=== PATIENT | female | born 2005 | race Caucasian/White ===

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

== ENCOUNTER 2025-02-28 06:18 | Emergency (ER) | payer BC, MEDICAID ==
[2025-02-28 06:39] LABS: BASOPHILS ABSOLUTE AUTO 0.07 K/uL (0.00-0.30); BASOPHILS PERCENT AUTO 0.7 % (0.0-1.0); EOSINOPHILS ABSOLUTE AUTO 0.06 K/uL (0.00-0.70); EOSINOPHILS PERCENT AUTO 0.6 % (0.0-5.0); IMMATURE GRAN ABSOLUTE AUTO 0.03 K/uL (0.00-0.05); IMMATURE GRAN PERCENT AUTO 0.3 % (0.0-0.4); LYMPHOCYTES ABSOLUTE AUTO 2.75 K/uL (2.00-8.80); LYMPHOCYTES PERCENT AUTO 29.4 % (50.0-65.0); MEAN PLATELET VOLUME 11.0 fL (9.4-12.3); MONOCYTES ABSOLUTE AUTO 0.58 K/uL (0.10-1.40); MONOCYTES PERCENT AUTO 6.2 % (2.0-10.0); NEUTROPHILS ABSOLUTE AUTO 5.86 K/uL (1.50-8.50); NEUTROPHILS PERCENT AUTO 62.8 % (35.0-45.0); NRBC ABSOLUTE 0.00 K/uL (0.00-0.03); NRBC PERCENT 0.0 /100WBC (0.0-0.2); PLATELET COUNT,PLT 385 K/uL (150-400); RED BLOOD CELL COUNT 4.45 M/uL (4.10-5.30); WHITE BLOOD CELL COUNT,WBC 9.35 K/uL (4.5-13.5)
[2025-02-28 07:03] LABS: BLOOD UREA NITROGEN,BUN 10 mg/dL (7.0-18.0); CARBON DIOXIDE,CO2 23.9 mmol/L (21.0-32.0); CHLORIDE,CL 103 mmol/L (98-107); CREATININE 0.8 mg/dL (0.6-1.0); EST CRCL DRUG DOSING (CG) 118.21 mL/min; ESTIMATED GFR 109 mL/min (>60); GLUCOSE RANDOM 111 mg/dL (74-106); POTASSIUM,K 3.4 mmol/L (3.5-5.1); SODIUM,NA 140 mmol/L (136-145)
[2025-02-28] MEDS: Potassium Chloride 20 MEQ Tab.ER PO ONE (07:21)
[2025-02-28 07:26] VITALS: BP 126/80; PULSE 88
== END 2025-02-28 07:25 | disposition home or self-care (01) ==
LOC: MW.ED 06:18
DX: R07.9 Chest pain, unspecified (principal); E87.6 Hypokalemia; Z88.0 Allergy status to penicillin; Z79.899 Other long term (current) drug therapy; Z91.040 Latex allergy status
CPT/HCPCS: 36415; 71045; 80048; 84484; 84703; 85025; 93005; 99285; A9270; 93010; 99283

== ENCOUNTER 2025-03-20 21:08 | Emergency (ER) | payer OTHER, BC ==
[2025-03-20] MEDS ORDERED: Sodium Chloride 0.9% 2.5 ML Syringe FLUSH PRN (21:10)
[2025-03-20] MEDS ORDERED: Sodium Chloride 0.9% 10 ML Syringe FLUSH PRN (21:10)
[2025-03-20] MEDS: Diphtheria,Pertussis(Acell),Tetanus Vaccine 0.5 ML Syringe IM ONE (21:22)
[2025-03-20] MEDS: Ondansetron 4 MG/2 ML SDV IVPUSH ONE ×2 (21:22→22:36)
[2025-03-20 21:35] LABS: BASOPHILS ABSOLUTE AUTO 0.11 K/uL (0.00-0.30); BASOPHILS PERCENT AUTO 0.7 % (0.0-1.0); EOSINOPHILS ABSOLUTE AUTO 0.15 K/uL (0.00-0.70); EOSINOPHILS PERCENT AUTO 1.0 % (0.0-5.0); IMMATURE GRAN ABSOLUTE AUTO 0.12 K/uL (0.00-0.05); IMMATURE GRAN PERCENT AUTO 0.8 % (0.0-0.4); LYMPHOCYTES ABSOLUTE AUTO 4.40 K/uL (2.00-8.80); LYMPHOCYTES PERCENT AUTO 30.0 % (50.0-65.0); MEAN PLATELET VOLUME 11.7 fL (9.4-12.3); MONOCYTES ABSOLUTE AUTO 0.90 K/uL (0.10-1.40); MONOCYTES PERCENT AUTO 6.1 % (2.0-10.0); NEUTROPHILS ABSOLUTE AUTO 9.00 K/uL (1.50-8.50); NEUTROPHILS PERCENT AUTO 61.4 % (35.0-45.0); NRBC ABSOLUTE 0.00 K/uL (0.00-0.03); NRBC PERCENT 0.0 /100WBC (0.0-0.2); PLATELET COUNT,PLT 410 K/uL (150-400); RED BLOOD CELL COUNT 4.88 M/uL (4.10-5.30); WHITE BLOOD CELL COUNT,WBC 14.68 K/uL (4.5-13.5)
[2025-03-20 21:50] LABS: A/G RATIO 0.6 (0.9-1.6); ALANINE AMINOTRANSFERASE,ALT 24 IU/L (14-63); ASPARTATE AMNIOTRANSFERASE,AST 28 IU/L (15-37); BILIRUBIN TOTAL 0.5 mg/dL (0.2-1.0); BLOOD UREA NITROGEN,BUN 12 mg/dL (7.0-18.0); CARBON DIOXIDE,CO2 21.9 mmol/L (21.0-32.0); CHLORIDE,CL 105 mmol/L (98-107); CREATININE 0.8 mg/dL (0.6-1.0); ETHANOL BLOOD MEDICAL <3 mg/dL; GLUCOSE RANDOM 138 mg/dL (74-106); POTASSIUM,K 3.8 mmol/L (3.5-5.1); PROTEIN TOTAL,TP 7.9 g/dL (6.4-8.2); SODIUM,NA 141 mmol/L (136-145)
[2025-03-20 21:52] LABS: ESTIMATED GFR 109 mL/min (>60)
[2025-03-20] MEDS: Iopamidol 755 MG/ML 500 ML Multipack Bottle IVPUSH ONE (22:02)
[2025-03-20] MEDS: Ketorolac 30 MG/ML SDV IVPUSH ONE (22:17)
[2025-03-20 22:32] LABS: INR 0.97 (0.86-1.11)
[2025-03-20] MEDS: Ketamine 500 mg/10 ML MDV IM PRN (22:36)
[2025-03-20] MEDS ORDERED: Orphenadrine 60 MG/2 ML Inj IM ONE (22:57)
[2025-03-20] MEDS: Bacitracin Oint 1 GM U/D Packet TOP ONE (23:05)
[2025-03-20 23:57] VITALS: BP 163/103; PULSE 105
== END 2025-03-20 23:50 | disposition home or self-care (01) ==
LOC: MW.ED 21:08
DX: S06.9X1A Unspecified intracranial injury with loss of consciousness of 30 minutes or less, initial encounter (principal); S42.491A Other displaced fracture of lower end of right humerus, initial encounter for closed fracture; S00.81XA Abrasion of other part of head, initial encounter; S29.8XXA Other specified injuries of thorax, initial encounter; S39.91XA Unspecified injury of abdomen, initial encounter; Z91.040 Latex allergy status; Z88.0 Allergy status to penicillin; Z79.899 Other long term (current) drug therapy; Z23 Encounter for immunization; V49.59XA Passenger injured in collision with other motor vehicles in traffic accident, initial encounter; Y93.89 Activity, other specified
CPT/HCPCS: 29105; 36415; 70450; 71260; 72125; 73060; 74177; 80053; 80307; 83690; 84703; 85025; 85610; 90471; 90715; 96372; 96374; 96375; 96376; 99284; A9270; J1885; J2405; J3490; Q9967; J1171

== ENCOUNTER 2025-03-23 22:38 | Emergency (ER) | payer BC ==
[2025-03-23] MEDS: Ketorolac 30 MG/ML SDV IM ONE (23:49)
[2025-03-24 00:45] VITALS: BP 116/76; PULSE 85
== END 2025-03-24 00:45 | disposition home or self-care (01) ==
LOC: MW.ED 22:38
DX: S54.01XA Injury of ulnar nerve at forearm level, right arm, initial encounter (principal); Z91.040 Latex allergy status; Z88.0 Allergy status to penicillin; Z79.899 Other long term (current) drug therapy; Z87.81 Personal history of (healed) traumatic fracture; X58.XXXA Exposure to other specified factors, initial encounter; Y93.89 Activity, other specified
CPT/HCPCS: 96372; 99283; A9270; J1885; 99284